=== PATIENT | male | born 1995 | race Caucasian/White ===

== ENCOUNTER 2021-05-06 03:06 | Emergency (ER) | payer OTHER ==
[~2021-05-06] VITALS: Ht 177.8 cm; Wt 77.1 kg
[2021-05-06] MEDS ORDERED: WELLBUTRIN XL300 MG (03:19)
[2021-05-06] MEDS ORDERED: SEROQUEL XR150 MG (03:19)
[2021-05-06] MEDS ORDERED: DEPAKOTE ER500 MG (03:20)
[2021-05-06] MEDS ORDERED: CLONIDINE1 EAC1 (03:20)
[2021-05-06] MEDS ORDERED: RISPERDAL3 MG (03:21)
[2021-05-06] MEDS ORDERED: AUSTEDO6 MG (03:21)
[2021-05-06] MEDS ORDERED: NAPR500T14 PO (05:03)
[2021-05-06] MEDS ORDERED: NORFLEX100MG PO (05:03)
== END 2021-05-06 05:11 | disposition home or self-care (01) ==
LOC: ER 03:06
DX: R07.89 Other chest pain (principal)